=== PATIENT | female | born 1950 | race Caucasian/White ===

== ENCOUNTER 2016-11-13 03:48 | Emergency (ER) ==
[2016-11-13 04:05] VITALS: BP 142/81; TEMP 98.3; BMI 33.8
[2016-11-13] MEDS ORDERED: TORADOL IM STA (04:13)
--- NOTE | 2016-11-13 04:16 | ED.PDOC ---
General ED Provider: Dr. BHUPINDER TATE Chief Complaint: Fall Stated Complaint: s/p fall at work, tripped over and fell. ever since hurting left knee ,left ribs and rt elbow. left knee is swollen too. Time Seen by Physician: 04:14 Mode of Arrival: Walk-In Information Source: Patient Nursing and Triage Documentation Reviewed and Agree: Yes Trauma/Injury Complaint Exam - Truncal Trauma Complaint/Exam Location of Pain: Reports: Left (left knee too), Chest Symptoms Are: Still present Onset of Pain: Reports: Immediate, Post accident Initial Severity: Moderate Current Severity: Moderate Mechanism: Reports: Direct blow Aggravating: Reports: Movement, Deep breathing Alleviating: Reports: None Associated Signs and Symptoms: Denies: Short of air, Chest pain, Cough, Hematuria, Abdominal pain, Fever, Nausea, Vomiting Related Surgical History: Reports: None Muffled Heart Sounds Present: No Paradoxical Chest Wall Movement Present: No Abdominal Guarding Present: No Abdominal Rigidity Present: No Referred Shoulder Pain (Kehr's Sign) Present: No Skin Findings: Present: Normal findings Differential Diagnoses: Chest Wall Contusion, Rib Fracture, Other (knee and elbow injury) Review of Systems - Review Of Systems Constitutional: Reports: No symptoms Eyes: Reports: No symptoms Ears, Nose, Mouth, Throat: Reports: No symptoms Respiratory: Reports: No symptoms Cardiac: Reports: Chest pain GI: Reports: No symptoms : Reports: No symptoms Musculoskeletal: Reports: Joint pain, Joint swelling Skin: Reports: No symptoms Neurological: Reports: No symptoms Endocrine: Reports: No symptoms Hematologic/Lymphatic: Reports: No symptoms All Other Systems: Reviewed and Negative Past Medical History - Past Medical History Previously Healthy: Yes Endocrine: Reports: None Cardiovascular: Reports: None Respiratory: Reports: None Hematological: Reports: None Gastrointestinal: Reports: None Genitourinary: Reports: None Neuro/Psych: Reports: None Musculoskeletal: Reports: None Cancer: Reports: None Last Menstrual Period: menopausal at 34 y/o - Surgical History General Surgical History: Reports: Tubal ligation - Family History Family History: Reports: None - Social History Smoking Status: Current every day smoker Smoking Cessation Counseling Time: > 3 min - 10 min Hx Substance Use: No Alcohol Screening: None - Immunizations Tetanus Shot up to Date: Yes Physical Exam - Physical Exam Appearance: Well-appearing, No pain distress, Well-nourished Eyes: VÍCTOR, EOMI, Conjunctiva clear ENT: Ears normal, Nose normal, Oropharynx normal Respiratory: Airway patent (left rib tender.), Breath sounds clear, Breath sounds equal, Respirations nonlabored Cardiovascular: RRR, Pulses normal, No rub, No murmur GI/: Soft, Nontender, No masses, Bowel sounds normal, No Organomegaly Musculoskeletal: ROM intact, No edema, No calf tenderness, Limited ROM (left knee, swelling rom decreased) Skin: Warm, Dry, Normal color Neurological: Sensation intact, Motor intact, Reflexes intact, Cranial nerves intact, Alert, Oriented Psychiatric: Affect appropriate, Mood appropriate Critical Care Note - Critical Care Note Total Time (mins): 0 Course - Course Orders, Labs, Meds: Orders Category Date Time Status Ketorolac Tromethamine [Toradol] MEDS 11/13/16 04:13 Stat 30 mg IM ONCE STA CT CHEST W/O CONTRAST Stat RADS 11/13/16 04:[address] KNEE LEFT WITHOUT CONTRAST Stat RADS 11/13/16 04:13 Ordered ELBOW, RIGHT 2 VIEWS Stat RADS 11/13/16 04:13 Ordered Vital Signs: Temp Pulse Resp BP Pulse Ox 11/13/16 03:49 98.3 F 95 H 20 142/81 H 94 L Departure - Departure Time of Disposition: 04:19 Disposition: HOME SELF-CARE Discharge Problem: Contusion of rib on left side Qualifiers: Encounter type: initial encounter Qualifier Code: (S20.212A) Contusion of left front wall of thorax, initial encounter Condition: Good Pt referred to PMD for follow-up: Yes Additional Instructions: rest hot pack take medications with food. Prescriptions: Hydrocodone/Acetaminophen [Vernon 5-325 Tablet] 1 tab PO TID PRN #12 tablet PRN Reason: PAIN Allergies/Adverse Reactions: Allergies No Known Allergies Allergy (Unverified 11/13/16 04:05) Home Medications: Ambulatory Orders Hydrocodone/Acetaminophen [Vernon 5-325 Tablet] 1 tab PO TID PRN #12 tablet 11/13 Disposition Discussed With: Patient, Family
[2016-11-13 04:53] LABS: COCAIN SCREEN,URINE NEGATIVE (NEGATIVE)
--- NOTE | 2016-11-13 05:07 | CT ---
EXAM: CT chest without intravenous 11/13/2016. Sagittal and coronal reformatted images obtained. Three-dimensional reconstructed images provided HISTORY: Fall. Left rib pain COMPARISON: None. FINDINGS: The heart size appears within normal limits. No pericardial effusion. There is no pulmonary consolidation. No pleural effusion or pneumothorax. Chronic degenerative endplate changes of the thoracic spine. The ribs appear intact without fracture. No acute osseous abnormality. IMPRESSION: 1. No acute cardiopulmonary process. 2. No acute osseous abnormality.
--- NOTE | 2016-11-13 05:14 | CT ---
EXAM: CT left knee without intravenous contrast 11/13/2016. Sagittal and coronal reformatted image s obtained HISTORY: Fall. Injury and pain COMPARISON: None. FINDINGS: Moderate chronic osteoarthritic degenerative change. There is prominent medial joint spa ce narrowing. Tricompartmental osteophyte formation. There is no evidence of acute fracture or subluxation at any level. The extensor mechanism is intac t. No joint effusion. IMPRESSION: 1. No acute post traumatic osseous abnormality. There is no evidence of fracture or subluxation. 2. Moderate osteoarthritic degenerative change. 3. If there is clinical concern for internal derangement then MRI could be obtained for further lisa luation.
--- NOTE | 2016-11-13 05:41 | DI ---
EXAM: Right elbow, three views, 11/13/2016 HISTORY: Elbow pain COMPARISON: None. FINDINGS / IMPRESSION: Normal anatomic alignment is maintained. The osseous structures appear inta ct. There is no evidence of fracture or dislocation. Minimal osteoarthritic degenerative change. No joint effusion. No acute osseous abnormality.
== END 2016-11-13 05:23 | disposition home or self-care (01) ==
LOC: ED 03:48
DX: S20.212A Contusion of left front wall of thorax, initial encounter (principal); S89.92XA Unspecified injury of left lower leg, initial encounter; S59.901A Unspecified injury of right elbow, initial encounter; W01.0XXA Fall on same level from slipping, tripping and stumbling without subsequent striking against object, initial encounter; Y99.0 Civilian activity done for income or pay; F17.210 Nicotine dependence, cigarettes, uncomplicated
CPT/HCPCS: 80306; 96372; 99283